=== PATIENT | male | born 1980 | race African-American/Black ===

== ENCOUNTER → 2016-08-07 | Emergency (ER) | payer MEDICAID, MEDICARE ==
[~2016-08-07] VITALS: Ht 188 cm; Wt 92.1 kg
[~2016-08-07] MED LIST: DIAZ5TAB3; HYDR-2598; IBUP600T27
[2016-08-07 18:26] LABS: Basophils # (auto) 0.1 uL; Basophils % (auto) 2.3 % (0.0-2.0); Eosinophils # (auto) 0.1 uL; Hematocrit 43.9 % (41.0-53.0); Hemoglobin 14.6 g/dL (13.5-17.5); Lymphocytes # (auto) 2.1 uL; Lymphocytes % (auto) 41.3 % (10.0-50.0); Mean Corpuscular Hemoglobin 30.5 pg (28.0-32.0); Mean Corpuscular Hgb Conc. 33.3 g/dL (32.0-36.0); Mean Corpuscular Volume 91.7 fL (80.0-100.0); Mean Platelet Volume 8.5 fL (7.4-10.4); Monocytes # (auto) 0.5 uL; Monocytes % (auto) 9.2 % (0.0-12.0); Neutrophils # (auto) 2.3 uL; Neutrophils % (auto) 46.2 % (37.0-80.0); Platelet Count (auto) 334 10^3/uL (140-450); Red Cell Distribution Width 13.2 % (11.6-16.0)
[2016-08-07 18:43] LABS: BUN/Creatinine Ratio 11.8; Calcium 8.8 mg/dL (8.5-10.1); Potassium 3.6 mmol/L (3.5-5.1)
[2016-08-07 18:46] LABS: Bilirubin, Total 0.8 mg/dL (0.2-1.0)
[2016-08-08 08:28] VITALS: BP 121/77
== END | disposition home or self-care (01) ==
LOC: ER 17:23
DX: K64.9 Unspecified hemorrhoids (principal); F17.210 Nicotine dependence, cigarettes, uncomplicated; F12.10 Cannabis abuse, uncomplicated; Z88.0 Allergy status to penicillin; Z88.1 Allergy status to other antibiotic agents
CPT/HCPCS: 36415; 74176; 80053; 85025; 86850; 86900; 86901